=== PATIENT | male | born 1995 | race Caucasian/White ===

== ENCOUNTER 2020-12-21 13:00 | Emergency (ER) | payer OTHER ==
[~2020-12-21] VITALS: Ht 177.8 cm; Wt 129.3 kg
[2020-12-21] MEDS ORDERED: BACTRIM DS TAB1 EACH PO (17:01)
== END 2020-12-21 17:10 | disposition home or self-care (01) ==
LOC: ED 13:00
DX: L03.316 Cellulitis of umbilicus (principal)
CPT/HCPCS: 74177; 80048; 85025; 99284-25; Q9967

== ENCOUNTER 2021-02-18 06:30 | Day surgery (SDC) | payer OTHER ==
[~2021-02-18] VITALS: Ht 177.8 cm; Wt 123.0 kg
[~2021-02-18 06:30] MED LIST: BACTRIM DS TAB1 EACH PO
--- NOTE | 2021-02-18 08:19 | NUR ---
02/18/21 0819 MagdalenaDipika sinha Kwasi 0812: ARRIVES IN PACU VIA STRETCHER FOR RECOVERY. VSS, RESP EVEN AND UNLABORED. O2 SATS STABLE ON 6L VIA MASK. DRESSING C/D/I. SCDS IN PLACE AND TURNED ON 0815: PT REACTIVE TO VERBAL STIMULI. VSS, RESP EVEN AND UNLABORED. PT REMOVES MASK PER SELF. OXYGEN TURNED OFF AND PT TRIALLED ON RA. O2 SATS REMAINS STABLE >94%. PT DENIES PAIN AND NAUSEA AT THIS TIME
[2021-02-18] MEDS ORDERED: IBUPROFEN600 MG PO (08:28)
[2021-02-18] MEDS ORDERED: DOXYCYCLINE HY100 MG PO (08:29)
[2021-02-18] MEDS ORDERED: OXYCODON-ACETA1 EAC2 PO (08:29)
[2021-02-18] MEDS ORDERED: ACETAMINOPHEN500 MG PO (08:29)
--- NOTE | 2021-02-21 09:18 | PATH ---
[facility] [address] [place], [place] [address] Signed SPECIMEN(S): A MASS OF UMBILICUS SPECIMEN SOURCE: A. 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 - Overlying acanthotic, hyperkeratotic epidermis with mixed acute and chronic inflammation and reactive changes. - Focal ruptured squamous cystic structure. - No evidence of malignancy. - See comment. COMMENT: Focally, a ruptured cystic structure lined by squamous epithelium is present; this could represent an epidermoid inclusion cyst. However there is no extra-cystic keratin debris which would suggest rupture. There is no evidence of malignancy or neoplastic process within the specimen. The findings could be secondary to infection. Clinical correlation is required. NAL:cml:C2NR MICROSCOPIC EXAMINATION: Histologic sections of all submitted blocks are examined by light microscopy. These findings, together with the gross examination, support the pathologic diagnosis. GROSS DESCRIPTION: The specimen, labeled "TH, mass of umbilicus," is received in formalin and consists of irregularly shaped pink-cohen, skin and soft tissue that in aggregate measure 2.1 x 1.2 x 0.7 cm. Sectioning through the specimen reveals pink-cohen friable tissue. Student Liaison Officer sections are submitted in cassette (A1). JS (under the direct supervision of a pathologist) The remaining of the specimen entirely submitted in additional cassette (A2) PATIENT NAME: JANNA WEBB PATHOLOGY DATE OF : [birth year] REPORT #: [id number] PHYSICIAN: TALISHA MEI PCP: NO PRIMARY CARE PHYSICIAN REPORT IS CONFIDENTIAL AND NOT TO BE RELEASED WITHOUT AUTHORIZATION [facility] [address] [address] Vazquez request. JS (under the direct supervision of a pathologist) The Gross Description was prepared using a voice recognition system. The report was reviewed for accuracy; however, sound-alike word errors, addition and/or deletions may occur. If there is any question about this report, please contact Client Services. PERFORMING LABORATORY: The technical component was performed by [employer] [address] (Assessment Services Manager: Reshma Adams MD; CLIA# [id number]). [facility], [address] [address] (CLIA# [id number]). Diagnostician: Mae Vazquez MD Pathologist Electronically Signed 02/21/2021 Copies: ~ PATIENT NAME: JANNA WEBB PATHOLOGY DATE OF : [birth year] REPORT #: [id number] PHYSICIAN: TALISHA PATHOLOGY PCP: NO PRIMARY CARE PHYSICIAN REPORT IS CONFIDENTIAL AND NOT TO BE RELEASED WITHOUT AUTHORIZATION
--- NOTE | 2021-02-22 10:51 | OR ---
[facility] [address] [place], [place] [address] Signed DATE OF OPERATION: 02/18/2021 SURGEON: Awa Bonilla MD PREOPERATIVE DIAGNOSES: 1. Persistent umbilical bleeding (small deep subcutaneous mass of umbilicus), left side. 2. Morbid obesity. POSTOPERATIVE DIAGNOSIS: Chronic inflammatory mass, lesion, and abscess of umbilicus.... possible inflammed urachal remnant. PROCEDURES: 1. Exam under anesthesia. 2. Excision of chronic inflammatory mass of deep umbilicus (possible inflamed urachal remnant) with debridement, irrigation, and placement of drain. ANESTHESIA: General, LMA; Isaiah Singh CRNA and local 10 mL of 0.25% Marcaine with epinephrine. INDICATIONS: This morbidly obese white man is self-referred for chronic recurrent umbilical bleeding. Examination in the office setting showed a deep umbilicus based on his obesity and conservative measures of cleanliness and hydrogen peroxide treatment and so forth were unsuccessful in improving the problem. He was seen in the emergency room on December 21, 2020. Evaluation included a CT scan of the abdomen showing mild cutaneous thickening at the umbilicus skin and minimal cellulitis, but no adjacent soft tissue stranding, collection of purulence. Despite efforts at the umbilical hygiene, he continues to have episodic significant umbilical bleeding. A somewhat compressible soft tissue mass was noted in the depths of the umbilicus to the left side. He is admitted at this time to undergo exam under anesthesia and remedy of the problem by surgical method. The risks of bleeding, infection, recurrence, and other unforeseen complications were reviewed in detail. He understands and wished to proceed. FINDINGS: At the time of preparation of the umbilicus deep within the depths of the umbilicus was Electronically Signed By: AWA BONILLA MD 02/22/21 1051 PATIENT NAME: JANNA WEBB OPERATIVE REPORT DATE OF : [birth year] REPORT #: [id number] PHYSICIAN: AWA BONILLA MD PCP: NO PRIMARY CARE PHYSICIAN REPORT IS CONFIDENTIAL AND NOT TO BE RELEASED WITHOUT AUTHORIZATION [facility] [address] [place], [place] [address] Signed a plug of hair and other material. This despite no obvious finding on initial preparation. To the left of the umbilical area in the depths of the wound was an area of granulation; it did not appear to be likely an epidermal inclusion cyst proper. Complete removal of this required a circum-umbilical incision to the left elevating the umbilical complex out of the depths of the wound. There was no associated umbilical hernia or sign of urachal connection. Inversion of the umbilical skin revealed an inflammatory mass- like wad of tissue, no doubt similar to a pilonidal process in the depths of the umbilicus. Complete excision and extirpation of the inflammatory problem was undertaken and irrigation and loose approximation of the skin incision undertaken and a drain placed. DESCRIPTION OF PROCEDURE: The patient was brought to the operating room, given a general LMA type anesthetic. Preoperative antibiotic Ancef was given. Sequential compression device stockings were used. Mid abdomen was clipped and prepared with a chlorhexidine solution and draped sterilely. Photographs were taken as well. Examination of the depths of the umbilicus showed the soft tissue mass to the left side, which was grasped with an Allis clamp and unroofed. Consider amount of granulation tissue was noted in this area. Initial debridement was undertaken, but it was clear that it extended far deeper than just beneath the skin. To allow for complete extirpation of the process, a circum-umbilical incision was made to the left of the umbilicus and dissection carried through the subcutaneous tissue with blunt electrocautery dissection. A cord-like umbilical skin process was freed from the fascia noting no evidence of fascial defect or hernia nor sign of urachal problem. This allowed elevation of the umbilical complex for more full examination. The umbilical skin was everted allowing complete examination showing inflammatory plug like process, which was excised with electrocautery and passed for pathology. Cultures were obtained of that tissue as well. Irrigation was undertaken in the umbilical skin and hemostasis secured with electrocautery. The skin defect was re-approximated with interrupted 4-0 Vicryl suture and the skin manipulated to its natural clinical position. Irrigation was undertaken in the depths of the incision to the abdominal fascia. Electrocautery used for hemostasis. Copious irrigation was undertaken throughout. Through a separate stab incision to the right, a 10-[place] fluted Quincy drain was placed in the depths of the umbilicus, secured to the skin with nylon suture. The drain was cut to appropriate length. The dermal edges were reapproximated with interrupted 3-0 Vicryl in a few interrupted 4-0 Vicryl as well. Bacitracin was applied to the depths of the umbilicus and onto the incision itself and an Acticoat dressing applied. He was ultimately extubated and transferred to the recovery room in good condition having suffered no complications. Sponge, needle, and instrument counts reported as correct x3. Electronically Signed By: AWA BONILLA MD 02/22/21 1051 PATIENT NAME: JANNA WEBB OPERATIVE REPORT DATE OF : [birth year] REPORT #: [id number] PHYSICIAN: AWA BONILLA MD PCP: NO PRIMARY CARE PHYSICIAN REPORT IS CONFIDENTIAL AND NOT TO BE RELEASED WITHOUT AUTHORIZATION [address] [place], [place] [address] Signed MD CARLYLE Forman/MAXX /[id number] Copies: ~ Electronically Signed By: AWA BONILLA MD 02/22/21 1051 PATIENT NAME: JANNA WEBB GISELLE OPERATIVE REPORT DATE OF : [birth year] REPORT #: [id number] PHYSICIAN: AWA BONILLA MD PCP: NO PRIMARY CARE PHYSICIAN REPORT IS CONFIDENTIAL AND NOT TO BE RELEASED WITHOUT AUTHORIZATION
== END 2021-02-18 10:05 | disposition home or self-care (01) ==
LOC: DS 06:30
PROVIDERS: ATTEND Surgery
PROC: 0WBF0ZZ Excision of Abdominal Wall, Open Approach (ICD-10-PCS; principal; 2021-02-18 07:00)
DX: L08.82 Omphalitis not of newborn (principal); K80.20 Calculus of gallbladder without cholecystitis without obstruction; E66.01 Morbid (severe) obesity due to excess calories; Z68.37 Body mass index [BMI] 37.0-37.9, adult
CPT/HCPCS: 00840; 87070; 87075; 87205; J0690; J1644; J1885; J2001; J2250; J2405; J2704; J3010; J7121

== ENCOUNTER 2023-09-06 13:26 | Emergency (ER) | payer BC ==
[~2023-09-06] VITALS: Ht 177.8 cm; Wt 131.5 kg
[~2023-09-06 13:26] MED LIST changes: +ACETAMINOPHEN500 MG PO; +DOXYCYCLINE HY100 MG PO; +IBUPROFEN600 MG PO; +OXYCODON-ACETA1 EAC2 PO
[2023-09-06] MEDS ORDERED: PREDNISONE20 MG PO (15:26)
[2023-09-06] MEDS ORDERED: EPIPEN 2-P0.3 MG/0.3 IM (15:26)
[2023-09-06 15:35] VITALS: BP 153/86
== END 2023-09-06 15:35 | disposition home or self-care (01) ==
LOC: ED 13:26
DX: T78.1XXA Other adverse food reactions, not elsewhere classified, initial encounter (principal); X58.XXXA Exposure to other specified factors, initial encounter
CPT/HCPCS: 94640; A9270; J2930

== ENCOUNTER 2025-04-16 21:25 | Emergency (ER) | payer BC ==
[~2025-04-16] VITALS: Ht 177.8 cm; Wt 106.9 kg
[~2025-04-16 21:25] MED LIST changes: +EPIPEN 2-P0.3 MG/0.3 IM; +PREDNISONE20 MG PO
[2025-04-16] MEDS ORDERED: KETOROLAC TROMETHAMINE 60 MG/2 ML VIAL IM ONE (22:15)
[2025-04-16] MEDS ORDERED: diazePAM 10 MG/2 ML SYR IM ONE (22:15)
[2025-04-16] MEDS ORDERED: HYDROCODON-ACE1 EA10 PO (23:30)
[2025-04-16] MEDS ORDERED: CYCLOBENZAPRINE10 MG PO (23:30)
[2025-04-16] MEDS ORDERED: HYDROCODONE BIT/ACETAMINOPHEN 5/325 MG 1 TAB HOME.PACK PO ONE (23:45)
[2025-04-16] MEDS ORDERED: CYCLOBENZAPRINE HCL 10 MG HOME.PACK PO ONE (23:45)
[2025-04-16] MEDS ORDERED: methylPREDNISolone 4 MG HOME.PACK PO ONE (23:45)
[2025-04-16 23:46] VITALS: BP 125/59
== END 2025-04-16 23:47 | disposition home or self-care (01) ==
LOC: ED 21:25
DX: M54.12 Radiculopathy, cervical region (principal)
CPT/HCPCS: 70450; 72125; 96372; 99283-25; A9270; J1885; J3360